=== PATIENT | male | born 1955 | race American Indian/Alaskan Native ===

== ENCOUNTER 2019-09-19 16:56 | Emergency (ER) | payer MEDICARE, OTHER ==
[~2019-09-19] VITALS: Ht 177.8 cm; Wt 136.1 kg
[~2019-09-19 16:56] MED LIST: ATOR10 PO; Adult Low Dose81 MG PO; BASAGLAR K100 UNIT/1 SC; Bactrim Ds Tab1 EACH PO; DOCU100 PO; FAMO20 PO; JANUMET XR 50-1 EAC1 PO; LISI20 PO; METF500 PO; METO10 PO; ONDA8 PO; OXYC5 PO
[2019-09-19] MEDS ORDERED: TRULICITY (19:57)
[2019-09-19] MEDS ORDERED: ASPI81CH PO (19:58)
== END 2019-09-19 20:03 | disposition home or self-care (01) ==
LOC: ER 16:56
DX: R60.0 Localized edema (principal); Z88.1 Allergy status to other antibiotic agents; Z79.4 Long term (current) use of insulin; Z79.82 Long term (current) use of aspirin; Z79.899 Other long term (current) drug therapy; I10 Essential (primary) hypertension; E10.42 Type 1 diabetes mellitus with diabetic polyneuropathy
CPT/HCPCS: 93971; 99284-25

== ENCOUNTER → 2019-11-09 | Outpatient (CLI) | payer MEDICARE ==
[~2019-11-09] MED LIST changes: +ASPI81CH PO; +TRULICITY
[2019-11-09 13:22] LABS: Protein, Urine Quantitative 160.6 mg/dL (0.0-11.9)
== END | disposition home or self-care (01) ==
LOC: LAB SHORT 08:39 → LAB SRC 08:39
PROVIDERS: Internal Medicine
DX: N17.9 Acute kidney failure, unspecified (principal)
CPT/HCPCS: 81050; 84156

== ENCOUNTER 2020-06-21 23:44 | Inpatient (IN) | payer MEDICARE ==
[~2020-06-21] VITALS: Ht 172.7 cm; Wt 135.4 kg
[~2020-06-21 23:44] MED LIST changes: -TRULICITY; +TRULICITY1.5 MG/0.1 SC
[2020-06-22 00:03] LABS: BASOPHILS ABSOLUTE AUTO 0.04 K/mm3 (0.00-0.23); BASOPHILS PERCENT AUTO 0 % (0-2); EOSINOPHILS ABSOLUTE AUTO 0.04 K/mm3 (0.00-0.68); EOSINOPHILS PERCENT AUTO 0 % (0-6); Hematocrit 31.8 % (37.0-53.0); Hemoglobin 10.4 g/dL (13.5-17.5); IMMATURE GRAN ABSOLUTE AUTO 0.03 K/mm3 (0.00-0.10); IMMATURE GRAN PERCENT AUTO 0 % (0-1); LYMPHOCYTES PERCENT AUTO 9 % (21-46); MONOCYTES ABSOLUTE AUTO 0.64 K/mm3 (0.16-1.47); MONOCYTES PERCENT AUTO 6 % (4-13); Mean Corpuscular HGB 29.5 pg (26.0-34.0); Mean Corpuscular HGB Conc 32.7 g/dL (31.5-36.5); Mean Corpuscular Volume 90 fL (80-100); Mean Platelet Volume 10.6 fL (9.1-12.4); NEUTROPHILS ABSOLUTE AUTO 8.33 K/mm3 (1.96-9.15); NEUTROPHILS PERCENT AUTO 84 % (41-73); Platelet Count 150 K/mm3 (150-400); RDW Coefficient Variation 13.5 % (11.7-14.2); RDW Standard Deviation 44.6 fL (35.1-46.3); Red Blood Cell Count 3.53 M/mm3 (4.30-5.90); White Blood Cell Count 9.98 K/mm3 (4.00-11.30)
[2020-06-22 00:27] LABS: Alanine Aminotransfer (ALT/SGP 22 U/L (12-78); Albumin, Blood 2.6 g/dL (3.4-5.0); Albumin/Globulin Ratio 0.7 (0.8-1.8); Alk Phos 134 U/L (50-136); Anion Gap 8 mmol/L (6-16); Aspartate Aminotrans (AST/SGOT 16 U/L (12-37); Bilirubin, Total 0.7 mg/dL (0.1-1.0); Blood Urea Nitrogen 46 mg/dL (8-24); Bun/Creatinine Ratio 18.3 (12.0-20.0); CO2, Blood 20 mmol/L (21-32); Calcium, Blood 7.7 mg/dL (8.5-10.1); Chloride, Blood 110 mmol/L (98-108); Creatinine, Blood 2.51 mg/dL (0.60-1.20); Globulin, Blood 3.6 g/dL (2.2-4.0); Glomerular Filtration Rate 27 (60-); Glucose, Blood 262 mg/dL (70-99); Potassium, Blood 4.4 mmol/L (3.5-5.5); Sodium, Blood 138 mmol/L (136-145); Total Protein, Blood 6.2 g/dL (6.4-8.2); Troponin I <0.015 ng/mL (0.000-0.040)
[2020-06-22 01:25] LABS: SARS-Cov-2 (COVID-19) PCR, MMC NEGATIVE (NEGATIVE)
[2020-06-22 01:49] LABS: Source, Urine Voided
[2020-06-22 01:55] LABS: Bilirubin, Urine Neg (Neg); Blood, Urine 2+ (Neg); Glucose Qualitative, Urine 3+ (Neg); Ketones, Urine Neg (Neg); Leukocyte Esterase, Urine 1+ (Neg); Nitrite, Urine Neg (Neg); Protein, Urine 4+ (Neg); Urobilinogen, Urine NORM (Normal)
[2020-06-22 02:11] LABS: Appearance, Urine Hazy (Clear); Color, Urine Yellow (P-Yellow)
[2020-06-22 02:12] LABS: Amorphous Light (0-Heavy); Bacteria Few /hpf; Red Blood Cells, Urine 0-2 /hpf (0-2); Squamous Epithelial Cells Few /hpf (Few); Transitional Epithelial Cells Few /hpf (0-Rare)
[2020-06-22] MEDS ORDERED: HYDROCHLOROTH12.5 MG PO (03:52)
[2020-06-22] MEDS ORDERED: AMLO10 PO (03:52)
[2020-06-22] MEDS ORDERED: FURO20 PO (03:53)
[2020-06-22] MEDS ORDERED: LOKELMA PO (03:55)
[2020-06-22 05:30] LABS: BASOPHILS ABSOLUTE AUTO 0.03 K/mm3 (0.00-0.23); BASOPHILS PERCENT AUTO 0 % (0-2); EOSINOPHILS ABSOLUTE AUTO 0.01 K/mm3 (0.00-0.68); EOSINOPHILS PERCENT AUTO 0 % (0-6); Hematocrit 28.3 % (37.0-53.0); Hemoglobin 9.3 g/dL (13.5-17.5); IMMATURE GRAN ABSOLUTE AUTO 0.07 K/mm3 (0.00-0.10); IMMATURE GRAN PERCENT AUTO 1 % (0-1); LYMPHOCYTES ABSOLUTE AUTO 1.09 K/mm3 (0.84-5.20); LYMPHOCYTES PERCENT AUTO 10 % (21-46); MONOCYTES ABSOLUTE AUTO 1.09 K/mm3 (0.16-1.47); MONOCYTES PERCENT AUTO 10 % (4-13); Mean Corpuscular HGB 29.6 pg (26.0-34.0); Mean Corpuscular HGB Conc 32.9 g/dL (31.5-36.5); Mean Corpuscular Volume 90 fL (80-100); Mean Platelet Volume 11.1 fL (9.1-12.4); NEUTROPHILS ABSOLUTE AUTO 8.68 K/mm3 (1.96-9.15); NEUTROPHILS PERCENT AUTO 79 % (41-73); Platelet Count 146 K/mm3 (150-400); RDW Coefficient Variation 13.7 % (11.7-14.2); RDW Standard Deviation 45.3 fL (35.1-46.3); Red Blood Cell Count 3.14 M/mm3 (4.30-5.90); White Blood Cell Count 10.97 K/mm3 (4.00-11.30)
[2020-06-22 06:05] LABS: Bun/Creatinine Ratio 18.9 (12.0-20.0); Calcium, Blood 7.3 mg/dL (8.5-10.1); Creatinine, Blood 2.54 mg/dL (0.60-1.20); Potassium, Blood 4.4 mmol/L (3.5-5.5)
--- NOTE | 2020-06-22 06:47 | NUR ---
SHIFT SUMMARY PT WAS A NEW ADMIT THIS AM, ARRIVING ON THE FLOOR AT 0445. HE IS A&O X 4, 2PA OUT OF BED D/T INCREASED WEAKNESS. HE WAS ADMITTED FOR SEPSIS AND UTI. NO C/O N/V, PAIN OR SOB SINCE ARRIVAL ON THE FLOOR. RECEIVING LR @ 100 ML/HR. VITAL SIGNS STABLE. NO ACUTE CHANGES IN PT CONDITION NOTED SINCE ADMISSION. WILL CONTINUE TO MONITOR AND TREAT PER EMAR UNTIL HAND OFF TO DAY SHIFT RN.
--- NOTE | 2020-06-22 18:50 | NUR ---
SHIFT SUMMARY DREA DENIED PAIN THIS SHIFT, STATES HE FEELS A LOT BETTER. TELE DC'D. WALKED IN HALLWAY WITH PT WITH AO1 AND WALKER. LLE STILL VERY RED AND SWOLLEN. GOT INSULIN FOR COVERAGE FOR MEALS. CALL LIGHT IN REACH, GIVING REPORT TO NIGHT NURSE
--- NOTE | 2020-06-23 05:47 | NUR ---
SHIFT SUMMARY PT IS A 64 Y/O MALE, ADMITTED FOR SEPSIS R/T UTI. HE IS A&O X 4, 1PA C FWW TO THE BATHROOM. PT HAS LLE REDNESS AND SWELLING, THAT PER PT IS CHRONIC. NO C/O ACUTE PAIN, NAUSEA OR SOB. VITAL SIGNS STABLE. NO ACUTE CHANGES IN PT CONDITION NOTED DURING THE NIGHT. WILL CONTINUE TO MONITOR AND TREAT PER EMAR UNTIL HAND OFF TO DAY SHIFT RN.
--- NOTE | 2020-06-23 18:11 | NUR ---
PT IS AOX4 AND COOPERATIVE OF CARE. PT DENIES PAIN AT THIS TIME. PT WAS A ONE PERSON STANDBY TO RESTROOM AND IS SITTING UP IN A CHAIR. PT HAS CALL LIGHT WITHIN REACH. NO DISTRESS NOTED AT THIS TIME. WILL CONTINUE TO MONITOR.
--- NOTE | 2020-06-24 04:32 | NUR ---
SHIFT SUMMARY ADMITTED FOR UTI/SEPSIS. MAY ALSO HAVE CELLULITIS IN LLE. HOPEFUL FOR DC HOME TODAY WITH SPOUSE. HE WAS INDEPENDENT W/FWW IN ROOM THIS SHIFT. HE DENIED PAIN. HE IS ACHS CHEMSTIX, ADA DIET, LOW SS. HE IS ON RA. HEPARIN FOR DVT PROPHYLAXIS. NO NEW CONCERNS THIS SHIFT.
[2020-06-24 05:40] LABS: Bun/Creatinine Ratio 19.2 (12.0-20.0); Calcium, Blood 7.6 mg/dL (8.5-10.1); Creatinine, Blood 2.13 mg/dL (0.60-1.20); Potassium, Blood 4.2 mmol/L (3.5-5.5)
--- NOTE | 2020-06-24 11:53 | NUR ---
Patient is sitting up in bed and alert. Patient tells me about his medical issues and then talks at length about his unique ideas about theology. Patient shares about his and her struggle with some kind of autoimmune disease. He talks about her loss of brain function that results in confusion, memory loss and loss of muscle function. Patient and his spouse find strength in their study of the Bible although they both have had to work through depression at times. I normalize patient's experience, reinforce helpful attitudes and practices and provide companionship and recitation of scripture (patient declines prayer). Spiritual care will continue to remain available to patient and family.
[2020-06-24] MEDS ORDERED: AMOCLA500 PO (11:58)
[2020-06-24] MEDS ORDERED: VISBIOME 112.51 EACH PO (11:58)
--- NOTE | 2020-06-24 15:30 | NUR ---
PT DISCHARGE AT 1225 WITH ALL PAPERWORK REVIEWED AND EDUCATIONAL MATERIAL REVIEWED. PT HAS BEEN A STAND BY ASSIST AND DENIES ANY PAIN. PT AOX4 AN COOPERATIVE OF ALL CARE. PERSONAL BELONINGS COLLECTED BY PT AND HIS FAMILY. PT DISCHARGED AT 1225 VIA WHEELCHAIR AND WAS ESCORTED OUT BY THIS CLUB FORMER.
== END 2020-06-24 12:20 | disposition home or self-care (01) | DRG 872 ==
LOC: ER 23:44 → MEDS 06-22 04:34 → ENPENDDIS 06-24 06:38 → MEDS 06-24 12:20
PROVIDERS: Emergency Medicine; Internal Medicine; ADMIT Family Medicine
DX: A41.9 Sepsis, unspecified organism (principal); N39.0 Urinary tract infection, site not specified; N17.9 Acute kidney failure, unspecified; Z20.822 Contact with and (suspected) exposure to COVID-19; R65.20 Severe sepsis without septic shock; E11.22 Type 2 diabetes mellitus with diabetic chronic kidney disease; N18.30 Chronic kidney disease, stage 3 unspecified; Z98.890 Other specified postprocedural states; Z88.1 Allergy status to other antibiotic agents; Z79.82 Long term (current) use of aspirin; Z79.899 Other long term (current) drug therapy; I12.9 Hypertensive chronic kidney disease with stage 1 through stage 4 chronic kidney disease, or unspecified chronic kidney disease; Z79.4 Long term (current) use of insulin; I89.0 Lymphedema, not elsewhere classified; E11.42 Type 2 diabetes mellitus with diabetic polyneuropathy; W01.0XXA Fall on same level from slipping, tripping and stumbling without subsequent striking against object, initial encounter; E66.01 Morbid (severe) obesity due to excess calories; E78.5 Hyperlipidemia, unspecified; I87.8 Other specified disorders of veins; E87.5 Hyperkalemia
CPT/HCPCS: 36415; 71045; 80048; 80053; 81001; 82947; 83605; 84145; 84484; 85025; 85379; 87040; 87086; 93005; 93010; 93971; 96374; 97116; 97162; 97530; 99285-25; A9270; J0696; J1644; J1815; J7030; J7050; J7120; U0004